=== PATIENT | female | born 1985 | race Caucasian/White ===

== ENCOUNTER 2017-01-20 22:12 | Emergency (ER) | payer OTHER ==
--- NOTE | ~2017-01-20 | ER ---
PATIENT'S NAME: ALEJO DE DIOSENA Rosie [facility] AGE: 31 Y [address] ROOM: [place] [address] LOCATION: ED ADMIT DATE: 01/20/2017 ER/Outpatient Report DISCHARGE DATE: 01/21/2017 FAMILY PHYSICIAN: Jonathan Horner MD ATTENDING PHYSICIAN: Glenis Gutierrez Time of Arrival: 2212 hours. Time of Evaluation: 2226 hours. IDENTIFICATION: A 31-year-old female. CHIEF COMPLAINT: Headache and high blood pressure. HISTORY OF PRESENT ILLNESS: At 9 p.m., the patient had sudden onset of pain behind her left eye and left temporal, intense for about 5 minutes, then decreased in severity. Pain now is "more intense," by which she means more generalized, 5/10. No vision changes. No nausea or vomiting. She has a little bit of stiffness in the right side of her neck. No numbness, tingling, or weakness. She said normally she has some tingling in her hands in the morning, but she has no tingling at this time. ALLERGIES: NO KNOWN DRUG ALLERGIES. CURRENT MEDICATIONS: 1. Irbesartan. 2. Hydrochlorothiazide. 3. Wellbutrin. 4. Sertraline. 5. Symbicort. MEDICAL PROBLEMS: Asthma, the asthma is just really associated when she gets a cold. Hypertension, migraine headaches. PRIOR SURGERIES: Cholecystectomy, tonsillectomy, bladder suspension, and hysterectomy. SOCIAL HISTORY: The patient is . Lives in [place], [place]. Does not work outside the home. Tobacco use, denies. Alcohol use, rare. Drug use, denies. PATIENT'S NAME: JEREMY DE DIOS [facility] AGE: 31 Y [address] ROOM: [place] [address] LOCATION: ED ADMIT DATE: 01/20/2017 ER/Outpatient Report DISCHARGE DATE: 01/21/2017 FAMILY PHYSICIAN: Jonathan Horner MD ATTENDING PHYSICIAN: Glenis Gutierrez REVIEW OF SYSTEMS: All systems reviewed and negative other than what is noted in the HPI. FAMILY HISTORY: Positive for diabetes. PHYSICAL EXAMINATION: VITAL SIGNS: Height 5 feet 7 inches, weight 112.7 kg. Blood pressure 210/133, pulse 101, respirations 16, temperature 97.8, sats 97%. GENERAL: A 31-year-old female, in no acute distress. HEENT: Head: Normocephalic, atraumatic. Ears: TMs translucent both ears. Eyes: Pupils equal and reactive to light and accommodation. Extraocular movements intact. Conjunctivae clear. Funduscopic exam, discs are sharp, vessels are benign. Nose: Mucosa pink. No lesions or drainage. Mouth: No lesions. Pharynx benign. NECK: Supple. No nuchal rigidity. LUNGS: Clear to auscultation. HEART: Regular rate and rhythm. ABDOMEN: Soft, nondistended, nontender. SKIN: [place], warm, and dry. No lesions or rashes noted. NEUROLOGIC: The patient is alert and oriented x4. Cranial nerves II through XII grossly intact. Motor strength 5/5 throughout. Sensation is intact to light touch. EMERGENCY DEPARTMENT COURSE: Recheck blood pressure. The patient's blood pressure came down to 156/98 without any intervention. The patient's headache improved, but did not completely resolve. With fentanyl 50 mcg, her pain completely resolved. Hemoglobin 14.5, hematocrit 43.2, platelets 194, white count 9.6 with a normal differential. INR 0.99. EKG normal sinus rhythm at 95 beats per minute. Nonspecific ST-T wave changes. No previous available for comparison. Sodium 138, potassium 3.3, chloride 104, CO2 of 24, BUN 18, creatinine 1.0. Blood sugar 129. Liver enzymes normal. Magnesium 2.0, CPK 51, CK-MB 0.8. Troponin I less than 0.040. Head CT, no acute findings. IMPRESSION AND PLAN: 1. Headache, resolved with fentanyl. 2. Hypertension. Blood pressure improved on its own. She has not yet taken her irbesartan today. She will take her medicine which is in the car upon discharge. Followup immediately if increase in pain or concerns, and she will resume all of her antihypertensive medicine. 3. Mild hypokalemia. Plan to increase potassium rich foods in diet and recheck with Dr. Horner in 1 day. Again, follow up sooner if any problems or concerns. The patient and her understand and agree, and all questions have been answered. PATIENT'S NAME: JEREMY DE DIOS [facility] AGE: 31 Y [address] ROOM: [place], [place] [address] LOCATION: [facility] ADMIT DATE: 01/20/2017 ER/Outpatient Report DISCHARGE DATE: 01/21/2017 FAMILY PHYSICIAN: Jonathan Horner MD ATTENDING PHYSICIAN: Glenis Gutierrez GLENIS GUTIERREZ MD CAR/modl /[id number] d: 01/21/17 0437 t: 01/21/17 191, OUTPATIENT REPORT
[~2017-01-20 22:12] MED LIST: BENAZEPRIL-HCT1 EAC1 PO; IBUPROFEN800 MG PO; IRBESARTAN-HCT1 EAC1 PO; PERCOCET 5-3251 EACH PO; WELLBUTRIN XL300 M2 PO; ZOLOFT100 MG PO
[2017-01-20 22:51] LABS: BASOPHIL # 0.1 K/uL (0.0-0.2); BASOPHIL % 0.5 %; EOSINOPHIL # 0.2 K/uL (0.0-0.5); EOSINOPHIL % 1.6 %; HEMATOCRIT 43.2 % (33.0-46.0); HEMOGLOBIN 14.5 g/dL (11.0-15.0); IMMATURE GRANULOCYTE # 0.1 K/uL (0.0-0.3); IMMATURE GRANULOCYTE % 0.8 %; LYMPHOCYTE # 2.9 K/uL (0.8-4.0); LYMPHOCYTE % 30.4 %; MCH 28.4 pg (27.0-34.0); MCHC 33.6 gm/dL (32.0-36.5); MCV 84.7 fl (83.0-98.0); MONOCYTE # 0.8 K/uL (0.0-1.0); MONOCYTE % 8.2 %; MPV 10.6 fl (9.4-12.4); NEUTROPHIL # (ANC) 5.6 K/uL (1.8-7.8); NEUTROPHIL % 58.5 %; NRBC % 0 /100WBC (0-0.00); PLATELET COUNT 194 K/uL (150-450); RDW-CV 14.6 % (11.9-14.6); WBC 9.6 K/uL (4.0-11.0)
[2017-01-20 23:18] LABS: INR - (THERAPEUTIC) 0.99 (0.92-1.07); PROTIME 10.4 SECONDS (9.8-11.4); PTT 25 SECONDS (25-32)
[2017-01-20 23:28] LABS: ALBUMIN 3.6 gm/dL (3.5-5.0); ALK PHOS 74 IU/L (33-138); ALT 28 IU/L (12-78); ANION GAP 13.3 (10.0-19.0); AST 15 IU/L (10-40); BLOOD UREA NITROGEN 18 mg/dL (6-24); CALCIUM 9.3 mg/dL (8.5-10.5); CHLORIDE 104 mMol/L (96-110); CO2 24 mMol/L (22-32); CPK 51 IU/L (21-215); ESTIMATED GFR (MDRD EQUATION) > 60; POTASSIUM 3.3 mMol/L (3.7-5.1); SODIUM 138 mMol/L (135-145); TOTAL BILIRUBIN 0.4 mg/dL (0.0-1.5); TOTAL PROTEIN 7.6 g/dL (6.0-8.4)
== END 2017-01-21 00:19 | disposition disaster alternative care site (69) ==
LOC: GMED 22:12
PROVIDERS: Family Medicine
DX: I10 Essential (primary) hypertension (principal); R51 Headache; E87.6 Hypokalemia; J45.909 Unspecified asthma, uncomplicated; Z90.49 Acquired absence of other specified parts of digestive tract; Z90.89 Acquired absence of other organs; Z90.710 Acquired absence of both cervix and uterus
CPT/HCPCS: J3010